=== PATIENT | female | born 1995 | race African-American/Black ===

== ENCOUNTER 2020-09-08 16:09 | Emergency (ER) | payer MEDICAID ==
[~2020-09-08] VITALS: Ht 162.6 cm; Wt 99.8 kg
[2020-09-08 16:49] VITALS: BP 118/61
--- NOTE | 2020-09-08 17:00 | NUR ---
25/F VIA EMS FOR T/C. C/O SACRAL AND NECK PAIN. DENIES LOC. NO OBVIOUS INJURY/DEFORMITY NOTED. IN [facility]AIR FOR [facility]SE.
--- NOTE | 2020-09-08 17:19 | NUR ---
ADAM Long is evaluating the patient.
[2020-09-08] MEDS ORDERED: KETOROLAC 60 MG/2 ML VIAL IM ONE ×2 (17:20→18:46)
--- NOTE | 2020-09-08 17:23 | NUR ---
Patient transferred to [facility] for further care.
--- NOTE | 2020-09-08 18:30 | NUR ---
RETURNED TO CHAIR A FROM RADIOLOGY.
[2020-09-08 19:17] VITALS: BP 121/74
--- NOTE | 2020-09-08 19:18 | NUR ---
REPORT TO GALEN HERNANDEZ ALL CARE TRANSFERRED.
--- NOTE | 2020-09-08 19:36 | NUR ---
Patient discharged with v/s stable. Written and verbal after care instructions given and explained. Patient alert, oriented and verbalized understanding of instructions. Ambulatory with steady gait. All questions addressed prior to discharge. ID band removed. Patient advised to follow up with PMD. Rx of NAPROSYN AND ROBAXIN given. Patient educated on indication of medication including possible reaction and side effects. Opportunity to ask questions provided and answered.
== END 2020-09-08 19:36 | disposition home or self-care (01) ==
LOC: MED 16:09
DX: S13.4XXA Sprain of ligaments of cervical spine, initial encounter (principal); S39.012A Strain of muscle, fascia and tendon of lower back, initial encounter; V89.2XXA Person injured in unspecified motor-vehicle accident, traffic, initial encounter; Y93.89 Activity, other specified; Y92.89 Other specified places as the place of occurrence of the external cause; Y99.8 Other external cause status
CPT/HCPCS: 72040; 72100; 81002; 81025; 96372; 99284; J1885